=== PATIENT | female | born 1975 | race Caucasian/White ===

== ENCOUNTER 2020-03-27 14:58 | Outpatient (CLI) | payer OTHER, SELFPAY ==
--- NOTE | ~2020-03-27 | US_ITS ---
EXAMINATION: US venous doppler [facility] DATE: 03/27/2020 15:41 INDICATION: Left upper extremity pain TECHNIQUE: Felicaino scale images with and without compression and Doppler images of the left upper extrem ity veins were obtained. COMPARISON: None. FINDINGS: The left internal jugular vein, subclavian vein, axillary vein, brachial veins, basilic vein, cephali c vein, radial vein, and ulnar vein are patent.] IMPRESSION: 1. Patent left upper extremity veins. No evidence of deep venous thrombosis. Reviewed, dictated and finalized at location A.
== END 2020-03-27 14:59 | disposition home or self-care (01) ==
LOC: ANHIMG 15:02
PROVIDERS: PCP Physician Assistant; Visit Provider Physician Assistant
DX: M79.602 Pain in left arm (principal)
CPT/HCPCS: 93971

== ENCOUNTER → 2020-12-09 12:50 | Outpatient (CLI) | payer OTHER, SELFPAY ==
--- NOTE | ~2020-12-09 | MM_ITS ---
EXAMINATION: MM scrn rad implant BI w [place] HISTORY: Screening mammogram, family history of breast cancer in her mother. TECHNIQUE: Craniocaudal and mediolateral oblique 3-D tomosynthesis images with implant displacement a nd synthetic 2-D images were generated. Craniocaudal and mediolateral oblique views of the breasts wi thout implant displacement were obtained using full field digital mammography. CAD analysis was submi tted and interpreted. COMPARISON: 09/03/2019 BREAST PARENCHYMAL COMPOSITION: The breasts are extremely dense, which lowers the sensitivity of mamm ography. FINDINGS: Scattered benign-appearing calcifications are present. There is no evidence of suspicious m ass, calcification, or architectural distortion to suggest malignancy in either breast. There has bee n no suspicious interval change. IMPRESSION: 1. No mammographic evidence of malignancy. 2. Recommend routine screening mammography in one year. BI-RADS Category 2: Benign finding(s). Reviewed, dictated and finalized at location A.
== END ==
DX: Z12.31 Encounter for screening mammogram for malignant neoplasm of breast (principal)
CPT/HCPCS: 77063; 77067

== ENCOUNTER 2021-11-15 00:47 | Emergency (ER) | payer OTHER, SELFPAY ==
[2021-11-15 00:52] VITALS: BP 149/88; PULSE 69; RESP 17; TEMP 36.6; O2SAT 100
[2021-11-15 01:03] VITALS: BP 138/91; PULSE 89; RESP 18; TEMP 36.4; O2SAT 100
--- NOTE | 2021-11-15 01:24 | ED.EPISTAXIS ---
HPI - Epistaxis General Chief complaint: Epistaxis <Betzaida Willett APRN - Last Filed: 11/15/21 03:11> Stated complaint: Nose bleed for 2 hours <Betzaida Willett APRN - Last Filed: 11/15/21 03:11> Time Seen by Provider: 11/15/21 00:51 <Betzaida Willett APRN - Last Filed: 11/15/21 03:11> Source: patient <Betzaida Willett APRN - Last Filed: 11/15/21 03:11> Mode of arrival: ambulatory <Betzaida Willett APRN - Last Filed: 11/15/21 03:11> Limitations: no limitations <Betzaida Willett APRN - Last Filed: 11/15/21 03:11> History of Present Illness HPI Narrative: 46 year old female presents today with complaints of epistaxis to the left nare x 2 today. Patient states she was able to get the bleeding to stop earlier but prior to arrival he nose had been bleeding for about 2 hours. While she was in the waiting room the bleeding stopped. Patient denies any medical history, denies history of epistaxis, but has been in some dry air lately. Patient currently no bleeding. <Betzaida Willett APRN - Last Filed: 11/15/21 03:11> Treatment prior to arrival: nose pinching <Betzaida Willett APRN - Last Filed: 11/15/21 03:11> Related Data Home medications: Home Medications Medication Instructions Recorded Confirmed No Home Medications 11/15/21 11/15/21 <Betzaida Willett APRN - Last Filed: 11/15/21 03:11> Allergies/adverse reactions: Allergies Allergy/AdvReac Type Severity Reaction Status Date / Time Penicillins Allergy Unknown Unknown Verified 11/15/21 01:00 Sulfa (Sulfonamide Allergy Unknown Unknown Verified 11/15/21 01:00 Antibiotics) <Betzaida Willett APRN - Last Filed: 11/15/21 03:11> Review of Systems Review of Systems: CONSTITUTIONAL: Denies fever, chills, or sweats. EYES: Denies visual changes, redness, or discharge. ENT: Denies rhinorrhea, congestion, sore throat, or otalgia. Nose bleeding for the last 2 hours. [place] draining down her throat. CARDIOVASCULAR: Denies chest pain, palpitations, or edema. RESPIRATORY: Denies cough or dyspnea. GASTROINTESTINAL: Denies abdominal pain, nausea, vomiting, or diarrhea. GENITOURINARY: Denies dysuria or hematuria. SKIN: Denies rash or itching. MUSCULOSKELETAL: Denies back pain, joint pain, or myalgia. NEUROLOGIC: Denies headache, numbness, dizziness, or weakness. PSYCHIATRIC: Denies anxiety or depression. <Betzaida Willett APRN - Last Filed: 11/15/21 03:11> PMFSH Family History Family History: Family History Mother Family history of malignant neoplasm of breast in first degree relative <Betzaida Willett APRN - Last Filed: 11/15/21 03:11> Social History Social History: Social History Smoking status: Never smoker Alcohol intake: current <Betzaida Willett APRN - Last Filed: 11/15/21 03:11> Exam Narrative: GENERAL: Well-appearing, well-nourished, and in no acute distress. HEAD: Normocephalic, atraumatic. EYES: PERRLA and EOMI. ENT: Bilateral nares with blood noted but no active bleeding epistaxis. Mucous membranes moist. Oropharynx without tonsillar hypertrophy exudate or other lesions. Bilateral TMs pearly mahan nonbulging NECK: Supple. No adenopathy or masses. No carotid bruits or JVD CHEST: Clear to auscultation. No respiratory distress. No wheezes rales or rhonchi HEART: Regular rate and rhythm. No murmur heard. Normal peripheral pulses. ABDOMEN: Soft, nontender, nondistended, normal active bowel sounds. EXTREMITIES: Normal range of motion. No edema. SKIN: Warm, dry, no rash. NEURO: No focal deficits. Alert and oriented x3. PSYCH: Normal mood and affect. <Betzaida Willett APRN - Last Filed: 11/15/21 03:11> Course Course Emergency Course: Patient nose bleed restarted. 2x2 soaked in afrin to left nostril and clamp applied. Bleeding continued after 20 minutes. 0300: no further bleeding.
[2021-11-15] MEDS: OXYMETAZOLINE HCL 0.05% NAS 15 ML BTL (*BKC) 2 SPRAY NASAL (01:30)
[2021-11-15] MEDS: ACETAMINOPHEN 500 MG TABLET 1000 MG PO (03:10)
[2021-11-15 03:16] VITALS: BP 138/91; PULSE 89; RESP 18; TEMP 36.4; O2SAT 100
== END 2021-11-15 03:17 | disposition home or self-care (01) ==
PROVIDERS: Emergency Provider Nurse Practitioner Family; PCP Physician Assistant
DX: R04.0 Epistaxis (principal)
CPT/HCPCS: 30901; 99283; A9270

== ENCOUNTER → 2022-05-04 11:45 | Outpatient (CLI) | payer OTHER, SELFPAY ==
--- NOTE | ~2022-05-04 | MM_ITS ---
EXAMINATION: MM scrn rad implant BI w [place] HISTORY: Screening mammogram TECHNIQUE: Craniocaudal and mediolateral oblique 3-D tomosynthesis images with implant displacement a nd synthetic 2-D images were generated. Craniocaudal and mediolateral oblique views of the breasts wi thout implant displacement were obtained using full field digital mammography. CAD analysis was submi tted and interpreted. COMPARISON: 12/05/2020, 09/03/2019 bilateral implant screening mammogram examinations BREAST PARENCHYMAL COMPOSITION: The breasts are extremely dense, which lowers the sensitivity of mamm ography. FINDINGS: Status post bilateral augmentation mammoplasty Biopsy markers are noted, minimal 2 on the left, 1 on the right; history of prior bilateral benign br east biopsies. Numerous scattered diffuse bilateral benign punctate microcalcifications. There is no evidence of suspicious mass, calcification, or architectural distortion to suggest malig mayank in either breast. There has been no suspicious interval change. IMPRESSION: 1. No mammographic evidence of malignancy. 2. Recommend routine screening mammography in one year. BI-RADS Category 2: Benign finding(s). Reviewed, dictated and finalized at location A.
== END ==
PROVIDERS: PCP Physician Assistant
DX: Z12.31 Encounter for screening mammogram for malignant neoplasm of breast (principal)
CPT/HCPCS: 77063; 77067

== ENCOUNTER 2023-05-08 12:18 | Outpatient (CLI) | payer OTHER, SELFPAY ==
--- NOTE | ~2023-05-08 | XR_ITS ---
EXAMINATION: XR lumbar spine 2-3V DATE: 05/08/2023 12:59 INDICATION: Low back pain TECHNIQUE: Anteroposterior and lateral views of the lumbar spine, and cone-down lateral view of the l umbosacral junction were obtained. COMPARISON: None. FINDINGS: No fracture, dislocation, or subluxation. The vertebral body heights, alignment, and interv ertebral disc spaces are normal. The paravertebral soft tissues are unremarkable. IMPRESSION: 1. No acute osseous abnormality. Reviewed, dictated and finalized at location A.
== END 2023-05-08 12:19 ==
DX: M54.50 Low back pain, unspecified (principal)
CPT/HCPCS: 72100

== ENCOUNTER 2023-11-16 15:10 | Outpatient (CLI) | payer OTHER, SELFPAY ==
--- NOTE | ~2023-11-16 | MM_ITS ---
EXAMINATION: MM scrn rad implant BI w [place] HISTORY: Screening mammogram, family history of breast cancer in her mother. TECHNIQUE: Craniocaudal and mediolateral oblique 3-D tomosynthesis images with implant displacement a nd synthetic 2-D images were generated. Craniocaudal and mediolateral oblique views of the breasts wi thout implant displacement were obtained using full field digital mammography. CAD analysis was submi tted and interpreted. COMPARISON: 05/04/2022, 12/09/2020, 09/03/2019 BREAST PARENCHYMAL COMPOSITION: The breasts are extremely dense, which lowers the sensitivity of mamm ography. FINDINGS: Stable punctate benign calcifications of the bilateral upper, outer quadrants. Stable bilat eral biopsy markers. There is no evidence of suspicious mass, calcification, or architectural distort ion to suggest malignancy in either breast. There has been no suspicious interval change. IMPRESSION: No mammographic evidence of malignancy. Recommend routine screening mammography in one year. BI-RADS Category 2: Benign finding(s). Reviewed, dictated and finalized at location M. INSPECTOR
== END 2023-11-16 15:11 | disposition home or self-care (01) ==
DX: Z12.31 Encounter for screening mammogram for malignant neoplasm of breast (principal)
CPT/HCPCS: 77063; 77067

== ENCOUNTER 2024-05-09 13:10 | Outpatient (CLI) | payer OTHER, SELFPAY ==
--- NOTE | ~2024-05-09 | XR_ITS ---
XR finger 2nd RT min 2V 05/09/2024 13:26 Indication: Subungual exostosis Procedure: 4 views right second finger Comparison: No prior studies for comparison. Findings: No fracture, subluxation or dislocation. No significant soft tissue abnormality. No foreign bodies. Impression: 1: No significant bone or joint abnormality Reviewed, dictated and finalized at location B. Impression: 1: No significant bone or joint abnormality
== END 2024-05-09 13:11 ==
PROVIDERS: PCP Physician Assistant; Visit Provider Physician Assistant
DX: D16.9 Benign neoplasm of bone and articular cartilage, unspecified (principal)
CPT/HCPCS: 73140

== ENCOUNTER → 2024-07-25 15:27 | Outpatient (REF) | payer OTHER, SELFPAY | LOC: ANHLAB 15:27 | PROVIDERS: PCP Physician Assistant; Visit Provider Plastic Surgery | DX: D48.5 Neoplasm of uncertain behavior of skin (principal) | CPT/HCPCS: 88305 ==